=== PATIENT | male | born 1945 | race African-American/Black ===

== ENCOUNTER 2019-02-03 07:59 | Emergency (ER) | payer OTHER ==
[~2019-02-03] VITALS: Ht 132.1 cm; Wt 62.6 kg
[2019-02-03] MEDS ORDERED: ZYLOPRIM300 MG PO (08:09)
[2019-02-03] MEDS ORDERED: AMLODIPINE BESY10 MG PO (08:22)
[2019-02-03] MEDS ORDERED: LIPITOR80 MG PO (08:22)
[2019-02-03] MEDS ORDERED: PLAVIX 75 MG TA75 M1 PO (08:23)
[2019-02-03] MEDS ORDERED: VITAMIN D1000 UNI1 PO (08:23)
[2019-02-03] MEDS ORDERED: COLACE100 MG PO (08:26)
[2019-02-03] MEDS ORDERED: ELIQUIS5 MG PO (08:26)
[2019-02-03] MEDS ORDERED: FOLIC ACID1 MG PO (08:26)
[2019-02-03] MEDS ORDERED: IMDUR 30 MG TAB30 M1 PO (08:27)
[2019-02-03] MEDS ORDERED: NORCO 5-325 TA1 EACH PO (08:27)
[2019-02-03] MEDS ORDERED: LOPRESSOR50 PO (08:28)
[2019-02-03] MEDS ORDERED: LIDOCAINE PAIN1 EACH TOP (08:28)
[2019-02-03] MEDS ORDERED: [UNRECOGNIZED DRUG - OTHER] TOP (08:28)
[2019-02-03] MEDS ORDERED: OMEPRAZOLE20 M1 PO (08:29)
[2019-02-03] MEDS ORDERED: PROAIR HFA8.5 GM INH (08:30)
[2019-02-03] MEDS ORDERED: SENNA8.6 MG PO (08:30)
[2019-02-03] MEDS ORDERED: STIOLTO RESPIMAT4 GM INH (08:30)
[2019-02-03] MEDS ORDERED: SYMBICORT160 MCG/4. INH (08:31)
[2019-02-03] MEDS ORDERED: VITAMIN B-1100 M1 PO (08:31)
[2019-02-03] MEDS ORDERED: TRAMADOL 50 MG50 MG PO (08:31)
[2019-02-03] MEDS ORDERED: VENLAFAXINE HC225 MG PO (08:31)
[2019-02-03] MEDS ORDERED: NEURONTIN 300300 M1 PO (08:32)
[2019-02-03] MEDS ORDERED: ONDANSETRON HCL4 M2 PO (08:32)
[2019-02-03] MEDS ORDERED: MELATONIN3 MG PO (08:33)
[2019-02-03] MEDS ORDERED: PERCOCET PO (08:33)
[2019-02-03] MEDS ORDERED: PRINIVIL10 MG PO (08:33)
[2019-02-03 09:00] LABS: BASOPHILS 0.8 % (0.0-2.0); EOSINOPHILS 0.1 % (0.0-3.0); HEMOGLOBIN 12.2 gm/dL (14.0-18.0); LYMPHOCYTES 15.4 % (24.0-44.0); MCH 31.3 pg (26.0-34.0); MCV 95.1 fL (80.0-100.0); MONOCYTES 10.5 % (1.0-8.0); PLATELET COUNT 315 thou/uL (150-400); POLYS 73.2 % (36.0-66.0); RBC 3.89 mil/uL (4.50-6.00); RDW 17.1 % (10.5-14.5); WBC 9.6 thou/uL (4.0-11.0)
[2019-02-03 09:09] LABS: ANION GAP 7 mmol/L (7-16); BUN 16 mg/dL (7-18); CALCIUM 10.3 mg/dL (8.5-10.1); CHLORIDE 101 mmol/L (98-107); CO2 30 mmol/L (21-32); CREATININE 0.9 mg/dL (0.7-1.3); GLUCOSE 124 mg/dL (74-106); POTASSIUM 4.1 mmol/L (3.5-5.1)
[2019-02-03 09:15] LABS: SODIUM 138 mmol/L (136-145)
[2019-02-03 09:17] LABS: TROPONIN-I <0.06 ng/mL (<0.06)
--- NOTE | 2019-02-03 09:21 | EKG ---
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1945 Requested By: Meir Kelly Order Number: [id number] MD: Misbah Ang Measurements Intervals [place] Rate: 131 P: WA: QRS: 10 QRSD: 97 T: 69 QT: 317 QTc: 468 Interpretive Statements Atrial fibrillation Abnormal R-wave progression, early transition Nonspecific ST and T wave abnormality No previous ECG available for comparison Electronically Signed On 02-03-2019 9:21:06 CDT by Misbah Agn [email or web address] ��������������������������������������������� <ELECTRONICALLY SIGNED> ���������������������������������������� By: Misbah Ang MD, [facility] ��������������������������������������������� 02/03/19 0921 0831 0831 Misbah Ang MD, FACC /EPI
[2019-02-03 12:00] VITALS: BP 168/75
== END 2019-02-03 14:00 | disposition home or self-care (01) ==
LOC: ER 07:59
PROVIDERS: Emergency Medicine
DX: L76.22 Postprocedural hemorrhage of skin and subcutaneous tissue following other procedure (principal); I48.0 Paroxysmal atrial fibrillation; G89.18 Other acute postprocedural pain; Y83.9 Surgical procedure, unspecified as the cause of abnormal reaction of the patient, or of later complication, without mention of misadventure at the time of the procedure

== ENCOUNTER 2019-02-13 09:36 | Inpatient (IN) | payer OTHER ==
[~2019-02-13] VITALS: Ht 152.4 cm; Wt 62.7 kg
--- NOTE | ~2019-02-13 | O ---
[facility] [place] [address] OPERATIVE REPORT Name: ROBERT GARRETT Room #: 209-P ADM IN M.R.#: [id number] Admission: 02/13/19 ������������������ Attend Phys: Abby Murray MD Discharge: ������������������ Date of : 47 Report #: [id number] THIS REPORT FOR: //name// CC: Lu Pryor Abby Murray DATE OF SERVICE: 02/16/2019 DIAGNOSES: Right long finger wound infection and flexor tenosynovitis. PROCEDURE PERFORMED: Right long finger debridement of skin and subcutaneous tissue, deep right long finger and flexor tendon sheath. SURGEON: Mariana Lilly MD. ANESTHESIA: Local MAC anesthesia. ESTIMATED BLOOD LOSS: 10 mL. TOURNIQUET TIME: None. COMPLICATIONS: None. CONDITION: Stable. DISPOSITION: Recovery room. SPECIMEN: Sent to microbiology. INDICATIONS: The patient is a 73-year-old male with progressive increased swelling and pain in the right long finger at the amputation site as well as in the palm today. He had noted increased swelling and purulent drainage out of the wound. The procedure as well as postoperative course were discussed with both the patient and his sister. I did spoke with his sister, Emily, over the phone. DESCRIPTION OF PROCEDURE: The risks, benefits, alternatives and complications were discussed including, but not limited to wound healing problems, inability to resolve the infection, necessitating more surgery, possible amputation and stiffness. Informed consent was obtained. The correct extremity was identified and labeled by myself after verbal confirmation of the patient and visual confirmation and signed informed consent. DESCRIPTION OF PROCEDURE: The patient was brought back to the operating room and placed on the operative room table in supine position. A prolonged and difficult attempt was made to place another IV. The original IV was placed in [address] [address] OPERATIVE REPORT Name: TAMIROBERT JR Room #: 209-P [facility] IN .R.#: [id number] Admission: 02/13/19 ������������������ Attend Phys: Abby Murray MD Discharge: ������������������ Date of : 47 Report #: [id number] the operative extremity in the junction of the middle and distal forearm volarly. After multiple attempts on both upper extremities and in both external jugulars, no IV was able to be placed. The patient has had bilateral above-knee amputations and there was no IV access there either and so I elected to perform the case without a tourniquet. The right upper extremity was sterilely prepped and draped in usual fashion. Final timeout was taken to verify correct patient, operative procedure, operative site, all concurred. Next, approximately 5 mL of a mixture of 0.25% Marcaine with 1% lidocaine was injected into the subcutaneous tissue proximal to the area of swelling in the palm. After adequate anesthesia was obtained, distal stitches were removed. Prior to manipulating the long finger, the ring finger was covered with an OpSite as it did not appear to have any signs of infection. There was immediate purulent fluid that was obtained out of the distal wound. An incision measuring 3 cm was made just proximal to the A1 osei and purulent fluid was immediately expressed. The FDP and FDS tendons immediately extruded out of the wound. They were cut off proximally because there was no distal attachment to the amputation at the PIP joint. The A1 osei was incised. Fluid flowed well throughout the tendon sheath with Asepto. Two liters of antibiotic saline was then irrigated through the flexor tendon sheath in both antegrade and retrograde. Regular rongeur was used previously to debride the area. After thorough irrigation, the wound was again evaluated. There were no areas of purulence. No other pockets of purulent fluid. The distal stump wound was closed with 4-0 nylon suture with a Francine drain and sterile Xeroform dressing was applied. The proximal wound was not dressed in order to facilitate drainage. The wound was dressed with Kerlix. There was minimal bleeding. Radial pulse was 1+. All sponge and needle counts were correct. The patient had unchanged color to the tips of his fingers due to his dark skin, capillary refill was difficult to determine, but he did appear to have good capillary refill. All sponge and needle counts were correct. The patient was transferred to the postoperative recovery room in stable condition. ��������������������������������������������� ���������������������������������������� By: ��������������������������������������������� 1148 1219 Mariana Lilly MD /lisa
--- NOTE | ~2019-02-13 | HC ---
[facility] [place] [address] CONSULTATION Name: ROBERT GARRETT Room #: 209-P ADM IN M.R.#: [id number] Admission: 02/13/19 ������������������ Attend Phys: Abby Murray MD Discharge: ������������������ Date of : 47 Report #: [id number] THIS REPORT FOR: //name// CC: Lu Pryor Abby Murray DATE OF SERVICE: 02/14/2019 REASON FOR CONSULTATION: Right fingers. HISTORY OF PRESENT ILLNESS: The patient is a 73-year-old male who is an extremely poor historian. He does not know when he had surgery on his fingers. He reports he has had worsening pain for the last 2 days in his fingers. He gives a history of intermittent feelings of poor blood flow to the fingers, which is painful. He has had multiple surgeries on his fingers. The patient's medical record states he had the long and ring finger digits amputated 2 weeks ago at the [place] for diagnosis of gangrene and apparently a few days ago, he had some bleeding and was seen in the Emergency Department. He reports pain at the stumps as well as in the volar aspect of the palm with increased swelling. PAST MEDICAL HISTORY: Was obtained from the chart including atrial fibrillation with rapid ventricular response, COPD, peripheral vascular disease. ALLERGIES: No known drug allergies. MEDICATIONS: Reported home medications include allopurinol, amlodipine, atorvastatin, cholecalciferol, clopidogrel, docusate, apixaban, folic acid, hydrocodone, isosorbide, lidocaine, metoprolol, omeprazole, albuterol, sennosides, tiotropium, budesonide, thiamine, tramadol, venlafaxine, ondansetron, gabapentin, lisinopril, melatonin and oxycodone. SOCIAL HISTORY: Significant for alcohol use and smoking. 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 REVIEW OF SYSTEMS: MUSCULOSKELETAL: See HPI. NEUROLOGIC: Denies numbness or tingling. LABORATORY DATA: Done on 02/14/2019 show white blood cell count 17.9, hemoglobin 9.3, hematocrit 29.0, platelet count 335. Chemistry is grossly normal. PHYSICAL EXAMINATION: GENERAL: The patient is alert. He converses well, although he does not [address] [address] CONSULTATION Name: ROBERT GARRETT Room #: 209-P [facility] IN M.R.#: [id number] Admission: 02/13/19 ������������������ Attend Phys: Abby Murray MD Discharge: ������������������ Date of : 47 Report #: [id number] cooperate with questions very well and it is difficult to obtain a history. He is otherwise well developed, well nourished, but thin male. VITAL SIGNS: Most recent vital signs show temperature of 37.4, heart rate 101, respiratory rate 20, blood pressure 111/53 and pulse oximetry is 92% on 3 liters of nasal cannula. EXTREMITIES: Examination of his right upper extremity shows diffuse edema in the palm and long and ring fingers with no erythema. The wounds are healing nicely. There is diffuse tenderness volarly in the palm as well as along the fingers. He has a shortened small finger from a prior surgical procedure. There is no dorsal tenderness at the long and ring fingers. There is no purulent drainage. His gross motor and sensation is grossly intact and he has brisk capillary refill. There is no erythema or warmth. RADIOGRAPHS: AP, lateral and oblique of the right hand were reviewed and interpreted by myself as well as the radiology report showed amputation through the PIP joint of the right long and ring fingers and through the distal aspect of the P3 on the small finger. There is no evidence of osteomyelitis. IMPRESSION AND PLAN: Approximately 2 weeks status post right long and ring finger amputations with apparent increased swelling and pain without erythema. At this point, because of my difficulty achieving a good history as well as tenderness, I think it would be appropriate to obtain an MRI to evaluate for deep infection. Vascular surgery consult would be appropriate as well due to the patient's apparent symptoms of claudication. I will continue to follow this patient. Thank you very much for allowing me to participate in the care of this patient. ��������������������������������������������� ���������������������������������������� By: ��������������������������������������������� 0753 1311 Mariana Lilly MD /lisa
[~2019-02-13 09:36] MED LIST: AMLODIPINE BESY10 MG PO; COLACE100 MG PO; ELIQUIS5 MG PO; FOLIC ACID1 MG PO; IMDUR 30 MG TAB30 M1 PO; LIPITOR80 MG PO; LOPRESSOR50 PO; Lidocaine TOP; MELATONIN3 MG PO; NEURONTIN 300300 M1 PO; NORCO 5-325 TA1 EACH PO; OMEPRAZOLE20 M1 PO; ONDANSETRON HCL4 M2 PO; PERCOCET PO; PLAVIX 75 MG TA75 M1 PO; PRINIVIL10 MG PO; PROAIR HFA8.5 GM INH; SENNA S TABLET1 EACH PO; STIOLTO RESPIMAT4 GM INH; SYMBICORT160 MCG/4. INH; TRAMADOL 50 MG50 MG PO; VENLAFAXINE HC225 MG PO; VITAMIN B-1100 M1 PO; VITAMIN D1000 UNI1 PO; ZYLOPRIM300 MG PO; [UNRECOGNIZED DRUG - OTHER] TOP
[2019-02-13 09:38] VITALS: BP 129/76
[2019-02-13 10:14] LABS: ABSOLUTE NEUTROPHILS 17.8 thou/uL (1.4-8.2); BASOPHILS 0.2 % (0.0-2.0); HEMOGLOBIN 11.2 gm/dL (14.0-18.0); LYMPHOCYTES 1.8 % (24.0-44.0); MCH 30.4 pg (26.0-34.0); MCHC 32.9 g/dL (28.0-37.0); MCV 92.5 fL (80.0-100.0); MONOCYTES 4.4 % (1.0-8.0); PLATELET COUNT 357 thou/uL (150-400); POLYS 93.6 % (36.0-66.0); RBC 3.67 mil/uL (4.50-6.00); RDW 17.3 % (10.5-14.5)
[2019-02-13 10:25] LABS: ANION GAP 11 mmol/L (7-16); BUN 17 mg/dL (7-18); CHLORIDE 95 mmol/L (98-107); CO2 27 mmol/L (21-32); GLUCOSE 129 mg/dL (74-106); POTASSIUM 3.7 mmol/L (3.5-5.1); SODIUM 133 mmol/L (136-145)
[2019-02-13 10:35] LABS: ALBUMIN 3.1 g/dL (3.4-5.0); SGOT 34 U/L (15-37); SGPT 37 U/L (30-65); TOTAL BILIRUBIN 0.3 mg/dL (<0.1-1.0); TOTAL PROTEIN 8.9 g/dL (6.4-8.2); TROPONIN-I <0.06 ng/mL (<0.06)
[2019-02-13 11:39] VITALS: BP 168/72
[2019-02-13 11:46] VITALS: BP 131/69
--- NOTE | 2019-02-13 13:09 | NUR ---
TO UNIT BY CART FROM E.D. AT 1200. ASSUMED CARE. TADEO ALBERTO, ADMISSION EDUCATION. LAB HERE NOW TO DRAW SEPSIS LABS. WILL CONTINUE TO MONITOR. FALL PRECAUTIONS IN PLACE.
--- NOTE | 2019-02-13 14:04 | 2DMMODE ---
[place] [address] [facility] [place] [address] 2 D/M-MODE ECHOCARDIOGRAM Name: ROBERT GARRETT Room #: 209-P ADM IN M.R.#: [id number] ������������� Admission: 02/13/19 ������������� Attend Phys: Abby Murray MD Discharge: ��� ������������� ��� Date of : 47 Date of Service: 02/13/19 1403 �� Report #: [id number] �������� ��������������������������������������������[id number] THIS REPORT FOR: //name// APPROVED REPORT Study performed: 02/13/2019 13:19:24 EXAM: Comprehensive 2D, Doppler, and color-flow Echocardiogram Patient Location: Bedside Room #: 209 Status: routine BSA: 1.57 HR: 80 bpm BP: 168/72 mmHg Rhythm: NSR Other Information Study Quality: Fair Technically limited study due to lung disease/artifact, no patient participation. Indications Chest pain, Afib w RVR. Hx: HTN, HLP, COPD, bilateral [place], lung cancer. 2D Dimensions RVDd: 29.85 mm IVSd: 9.78 (7-11mm) LVOT Diam: 20.13 (18-24mm) LVDd: 40.70 mm PWd: 10.03 (7-11mm) LVDs: 29.71 (25-40mm) Aortic Root: 34.33 mm Volumes Left Atrial Volume (Systole) Single Plane 4CH: 21.50 mL Single Plane 2CH: 25.09 mL LA ESV Index: 17.00 mL/m2 Aortic Valve AoV Peak Pepito.: 1.35 m/s AO Peak Gr.: 7.25 mmHg LVOT Max P.00 mmHg LVOT Max V: 1.23 m/s TU Vmax: 2.89 cm2 Mitral Valve [facility] [address] [place] [address] 2 D/M-MODE ECHOCARDIOGRAM Name: ROBERT GARRETT Room #: 209-P [facility] IN ..#: [id number] ������������� Admission: 02/13/19 ������������� Attend Phys: Abby Murray MD Discharge: ��� ������������� ��� Date of : 47 Date of Service: 02/13/19 1403 �� Report #: [id number] �������� ��������������������������������������������[id number] E/A Ratio: 0.6 MV Decel. Time: 240.95 ms MV E Max Pepito.: 0.48 m/s MV A Pepito.: 0.75 m/s MV PHT: 69.88 ms IVRT: 78.43 ms Left Ventricle The left ventricle is normal size. There is normal left ventricular wall thickness. Left ventricular systolic function is normal. LVEF is 55%. Mild diastolic dysfunction is present (impaired relaxation pattern). Right Ventricle The right ventricle is normal size. The right ventricular systolic function is normal. Atria The left atrium size is normal. The right atrium size is normal. Aortic Valve The aortic valve is not well visualized. Aortic valve is mildly calcified. Mild to moderate aortic regurgitation. There is no aortic valvular stenosis. Mitral Valve The mitral valve is normal in structure. There is no mitral valve regurgitation noted. No evidence of mitral valve stenosis. Tricuspid Valve The tricuspid valve is normal in structure. There is no tricuspid valve regurgitation noted. Unable to assess PA pressure. Pulmonic Valve Pulmonic valve is not well visualized. Great Vessels The aortic root is normal in size. Ascending aorta is not well visualized. IVC is not well visualized. Pericardium There is no pericardial effusion. <Conclusion> The left ventricle is normal size. [facility] [address] [place] [address] 2 D/M-MODE ECHOCARDIOGRAM Name: ROBERT GARRETT Room #: 209-P [facility] IN M.R.#: [id number] ������������� Admission: 02/13/19 ������������� Attend Phys: Abby Murray MD Discharge: ��� ������������� ��� Date of : 47 Date of Service: 02/13/191402 �� Report #: [id number] �������� ��������������������������������������������[id number] There is normal left ventricular wall thickness. Left ventricular systolic function is normal. Mild diastolic dysfunction is present (impaired relaxation pattern). The right ventricle is normal size. The left atrium size is normal. The right atrium size is normal. Mild to moderate aortic regurgitation. There is no mitral valve regurgitation noted. There is no tricuspid valve regurgitation noted. ��������������������������������������������� <ELECTRONICALLY SIGNED> ���������������������������������������� By: Bigg Lawrence MD ��������������������������������������������� 02/13/19 1403 140 1403 Bigg Lawrence MD /KRISTOPHER
--- NOTE | 2019-02-13 15:45 | NUR ---
TO UNIT BY CART, ACCOMPANIED BY EMT'S AND YOUNGER BROTHER GUIDO ROBIN. REPORT FROM [facility]. WILL CONTINUE TO FOLLOW.
[2019-02-13] MEDS ORDERED: LIDOCAINE TOP (15:47)
--- NOTE | 2019-02-13 15:56 | EKG ---
[address] [address] ELECTROCARDIOGRAM REPORT Name: ROBERT GARRETT Room #: 209-P ADM IN M.R.#: [id number] ������������������ Admission: 02/13/19 ������������������ Attend Phys: Abby Murray MD Discharge: ������������������ Date of : 47 Report #: [id number] ����������������������������������������������������������������� [id number] THIS REPORT FOR: //name// [facility] ED Test Date: 2019-02-13 Test Time: 09:41:07 Pat Name: ROBERT GARRETT Department: Room: 209 Gender: M [employer]: TRACY : 1945 Requested By: David Escudero Order Number: [id number] MD: Bigg Lawrence Measurements Intervals [place] Rate: 141 P: MD: QRS: 22 QRSD: 76 T: 147 QT: 324 QTc: 496 Interpretive Statements Atrial fibrillation Abnormal R-wave progression, early transition Repolarization abnormality, prob rate related Borderline prolonged QT interval Compared to ECG 02/03/2019 08:31:33 Early repolarization now present ST (T wave) deviation no longer present Electronically Signed On 02-13-2019 15:56:35 CDT by Bigg Lawrence [email or web address] ��������������������������������������������� <ELECTRONICALLY SIGNED> ���������������������������������������� By: Bigg Lawrence MD ��������������������������������������������� 02/13/19 1556 0941 0941 Bigg Lawrence MD /[facility]
--- NOTE | 2019-02-13 16:21 | NUR ---
Case opened to follow for dc planning. Pt is newly admitted via the ER from [facility]. 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 They are holding his bed and report his sister Yenifer to be his primary contact. The pt is a bilat amputee and uses an elect w/c at the facility. He is a smoker and regularly refuses to use his oxygen. He utilizes the [facility] for f/u care and had digit amputation of his rt hand 3 and 4th fingers 2 wks ago. The pt admitted with chest pain, afib, rt hand cellulitis and copd. The attending has spoken with his sister and the pt is a DNR. Dc plan is to return to termite treater care at [facility]. Should the pt be dc ready over the weekend, contact [facility] to make arrangements [phone]. Pt does not have his elec w/c here and will need stretcher or ambulance transport to return. [facility] is checking his record for any AD or DPOA for health care on file.
[2019-02-13 21:30] VITALS: BP 153/78
[2019-02-14 04:30] VITALS: BP 111/53
--- NOTE | 2019-02-14 05:39 | NUR ---
ASSUMED PT CARE AT 1900 WITH NO SIGN OF DISTRESS NOTED. PT IS ALERT BUT IS CONFUSED. PT IS SITTING IN BED. PT IS COMFORTABLE WITH OXYGEN. PT CONVERTED BACK INTO AFIB AFTER CARDIZEM HAD BEEN DISCONTINUED. DR FLORENCE NOTIFIED AND HE ORDERED CARDIZEM RESTARTED. PT'S RATE IS BETTER CONTROLLED. SCHEDULED MEDS ADMINISTERED TO PT. DENIES ANY FURTHER NEEDS AT THIS TIME. PAIN MEDS ADMINISTERED NEEDED, CONTINUE NURSING POC.
[2019-02-14 05:56] LABS: HEMOGLOBIN 9.3 gm/dL (14.0-18.0); MCH 29.9 pg (26.0-34.0); MCHC 32.1 g/dL (28.0-37.0); MCV 93.2 fL (80.0-100.0); RBC 3.11 mil/uL (4.50-6.00); RDW 17.6 % (10.5-14.5); WBC 17.9 thou/uL (4.0-11.0)
[2019-02-14 06:04] LABS: ANION GAP 11 mmol/L (7-16); BUN 15 mg/dL (7-18); CALCIUM 9.7 mg/dL (8.5-10.1); CHLORIDE 100 mmol/L (98-107); CO2 26 mmol/L (21-32); CREATININE 0.9 mg/dL (0.7-1.3); GLUCOSE 104 mg/dL (74-106); POTASSIUM 3.5 mmol/L (3.5-5.1); SODIUM 137 mmol/L (136-145); TROPONIN-I <0.06 ng/mL (<0.06)
--- NOTE | 2019-02-14 10:33 | NUR ---
Nutrition: pt admitted with CP, afib, RVR, COPD. Consulted due to bilateral amputee. Chart reviewed. Pt reports he has a good appetite and weights flucutate within a range. Noted A1C 6.0, BG 93. On heart healthy diet. Pt from [place] and [facility] drinks ensure daily. WIll offer Glucerna instead. Low risk.
--- NOTE | 2019-02-14 11:13 | HC ---
[facility] [place] [address] CONSULTATION Name: DAMIAN GARRETT Room #: 209-P ADM IN M.R.#: [id number] Admission: 02/13/19 ������������������ Attend Phys: Abby Murray MD Discharge: ������������������ Date of : 47 Report #: [id number] THIS REPORT FOR: //name// CC: Lu Pryor Abby Murray DATE OF SERVICE: 02/14/2019 ATTENDING PHYSICIAN: Dr. Murray. REASON FOR EVALUATION: Right hand inflammation. Postop third and fourth digit partial amputations felt to be possibly complicated by bacterial infection. HISTORY OF PRESENT ILLNESS: Chart reviewed, patient examined. This is a 73-year-old gentleman who has had significant medical history and it is quite complex, has known vasculopathy, previous bilateral AKA and felt to have gangrenous changes. He was admitted through the Emergency Room with complaints of chest pain, does have a history of the same and was evaluated and stabilized, was found to have marked inflammation noted with his right hand in the site of previous above noted surgery roughly three weeks ago. It is not clear if he has had fever or chills. He is not an exceptional historian. He does repeatedly complain about the pain. He notes he has had a poor appetite associated with the pain. He states he has lost some weight, although this is not clear either. He denies any current dyspnea. He was empirically started on antimicrobials with piperacillin and tazobactam as well as vancomycin. Orthopedic Surgery has been consulted. He did undergo imaging, plain film of the hand, which confirmed the amputation sites and the soft tissue swelling. No drainable focus of fluid. ALLERGIES: None known. CURRENT MEDICATIONS: Include metoprolol, isosorbide mononitrate, docusate, clopidogrel, atorvastatin, amlodipine, allopurinol, apixaban, Zosyn, vancomycin, gabapentin, narcotic analgesics as needed. PAST MEDICAL HISTORY: Includes hyperlipidemia, history of hypertension, COPD, reflux, gout, lung cancer, bilateral vcgvt-ver-igvl amputations, repeated chest pain, suspect angina and peripheral vascular disease. SOCIAL HISTORY: History of ethanol and tobacco excess. FAMILY HISTORY: Noncontributory. REVIEW OF SYSTEMS: Otherwise unremarkable with the exception of the above in the history of present illness. PHYSICAL EXAMINATION: [address] [address] CONSULTATION Name: DAMIAN GARRETT Room #: 209-P [facility] IN M.R.#: [id number] Admission: 02/13/19 ������������������ Attend Phys: Abby Murray MD Discharge: ������������������ Date of : 47 Report #: [id number] GENERAL: He appears chronically ill, appears undernourished. He is pleasant, cooperative, in moderate distress. He is sitting up in bed. VITAL SIGNS: Temperature 99.4, pulse 101, respirations 20, blood pressure 111/53. SKIN: Warm and dry. HEENT: Normocephalic. Extraocular muscles intact. NECK: Supple. LUNGS: Diminished breath sounds. HEART: Tachycardic, appears regular. There is a soft systolic murmur. ABDOMEN: Soft, nontender and nondistended. EXTREMITIES: He is with bilateral lrpzx-xdg-vbtm amputations. In his right hand, he has got partial amputations of the third and fourth digits. Sutures remain in place. There is moderate to marked inflammatory changes. It is quite tender. It is difficult to ascertain any fluctuance. GENITOURINARY: Deferred. RECTAL: Deferred. LABORATORY DATA: Initial CBC: White count 19.0, H and H 11.2 and 34.0, platelets of 357. Electrolytes: Sodium 133, potassium 3.7, chloride 95, bicarbonate is 27, anion gap of 11, BUN and creatinine 17 and 1.0. Albumin of 3.1. Total protein of 8.9. Chest x-ray, no obvious acute process, although there are some chronic changes and x-rays as noted above. Lactic acid 1.5 and glucose of 93. Hemoglobin A1c of 6.0. ASSESSMENT: Postop right third and fourth digit partial amputations of the right hand concerning for possibility of postoperative infection in this setting. I agree with empiric therapy. It is not clear if he has got any additional drainable focus at this point. We will see how he responds clinically. Certainly a component of vasculopathy is likely in play as well. Continue to try to elevate as allowed. We will monitor expectantly and await Orthopedic Surgery evaluation. ��������������������������������������������� <ELECTRONICALLY SIGNED> ���������������������������������������� By: Damian Lopez MD ��������������������������������������������� 02/14/19 1113 0613 0700 Damian Lopez MD /nt
[2019-02-14 15:45] VITALS: BP 130/103
--- NOTE | 2019-02-14 18:30 | NUR ---
ORIENTED TO SELF. GENERALLY COOPERATIVE. EPISTAXIS, WHICH HE STATES HAPPENS MONTHLY. ON TWO BLOOD THINNERS R/T AFIB AND PVD; DR. GARCIA PUTS THEM ON HOLD. DR. MUNOZ, ENT, CONSULTED BUT WHEN HERE PATIENT WAS IN MRI. MRI UNSUCCESSFUL R/T EPISTAXIS AND INABILITY OF PATIENT TO HOLD STILL. ALTERNATELY INCONTINENT OF URINE AND USING THE URINAL APPROPRIATELY. PAIN MEDS AND ANTIBIOTICS ORDERED. FREQUENT CHECKS; WILL CONTINUE TO MONITOR.
--- NOTE | 2019-02-14 18:34 | NUR ---
AAO. SR PER TELE. PT AND OT SEE AND RECOMMEND KEEPING THE GOMES FOR NOW. SAT UP IN THE BEDSIDE CHAIR FOR SEVERAL HOURS. PO INTAKE IS BRISK. DIURESING PER GOMES. FREQUENT CHECKS; WILL CONTINUE TO MONITOR.
[2019-02-14 20:09] VITALS: BP 117/45
[2019-02-15 05:03] VITALS: BP 117/57
[2019-02-15 05:05] LABS: HEMATOCRIT 25.7 % (42.0-52.0); HEMOGLOBIN 8.4 gm/dL (14.0-18.0); MCH 30.6 pg (26.0-34.0); MCHC 32.6 g/dL (28.0-37.0); MCV 93.8 fL (80.0-100.0); RBC 2.74 mil/uL (4.50-6.00); RDW 17.8 % (10.5-14.5); WBC 16.2 thou/uL (4.0-11.0)
--- NOTE | 2019-02-15 05:05 | NUR ---
ASSUMED PT CARE AT 1900 [place] NO SIGN OF DISTRESS NOTED. PT IS ALERT BUT CONFUSED, PAIN MED ADMINISTERED TO PT AT THE BEGINNING OF THE SHIFT. SCHEDULED MEDS ADMINISTERED TO PT. NO SIGN OF DISTRESS NOTED. CONITNUE TO MONITOR. DENIES ANY FURTHER NEEDS AT THIS TIME.
[2019-02-15 07:52] VITALS: BP 122/60
--- NOTE | 2019-02-15 08:17 | EKG ---
[address] [employer] [place] [place] [address] ELECTROCARDIOGRAM REPORT Name: ROBERT GARRETT Room #: 209-P ADM IN M.R.#: [id number] ������������������ Admission: 02/13/19 ������������������ Attend Phys: Abby Murray MD Discharge: ������������������ Date of : 47 Report #: [id number] ����������������������������������������������������������������� [id number] THIS REPORT FOR: //name// [facility] Test Date: 2019-02-14 Test Time: 07:47:58 Pat Name: ROBERT GARRETT Department: Room: 209 P Gender: M Floor Supervisor: SHAR : 1945 Requested By: Sara Ponce Order Number: [id number] MD: Bigg Lawrence Measurements Intervals [place] Rate: 94 P: 0 IL: 52 QRS: -33 QRSD: 99 T: 60 QT: 369 QTc: 462 Interpretive Statements Sinus rhythm Short [place] interval Left axis deviation Borderline low voltage, extremity leads Compared to ECG 02/13/2019 09:41:07 Atrial fibrillation no longer present Electronically Signed On 02-15-2019 8:17:25 CDT by Bigg Lawrence [email or web address] ��������������������������������������������� <ELECTRONICALLY SIGNED> ���������������������������������������� By: Bigg Lawrence MD ��������������������������������������������� 02/15/19 0817 0747 6 Bigg Lawrence MD /RONALD
[2019-02-15 12:09] VITALS: BP 104/47
--- NOTE | 2019-02-15 15:22 | NUR ---
Received awake on bed. Due medications given as prescribed. Able to swallow medications w/o difficulty. On O2 at 3lpm via nasal cannula. Assisted in ADLs, eating and drinking. 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 A+O 1-2, with history of dementia, oriented to person and place. With IV at R FA and L AC, NS at 80cc/hr infusing well at L AC. Occasional incontinence, sometimes uses urinal. Laboratory called up, pt was due for drug screen on admission but was not processed, specimen to be sent again according to staff. A/W MRI today, pt was for MRI yesterday but pt became anxious. Pt with Carlos episodes this AM while Dr. Lawrence was doing his rounds, pt assessed by Doctor and orders put in. Dr. Blandon's associate(Sanam Rabago) called this AM, asked about pt's status, to order Arterial Duplex for Saturday morning- order put in. Pt. seen by Dr. Murray, to d/c Morphine, pt slight lethargic and just give PO pain meds, to observe for further epistaxis- none the whole shift. D/C NS as ordered by Dr. Murray, for CBC tomorrow, pt placed on humidified o2.
[2019-02-15 16:00] VITALS: BP 97/48
[2019-02-15 19:06] VITALS: BP 101/44
[2019-02-16] VITALS (7 sets, daily range): BP systolic 97–110; BP diastolic 46–78
[2019-02-16 03:20] LABS: HEMATOCRIT 22.2 % (42.0-52.0); HEMOGLOBIN 7.2 gm/dL (14.0-18.0); MCH 30.1 pg (26.0-34.0); MCHC 32.3 g/dL (28.0-37.0); MCV 93.2 fL (80.0-100.0); RBC 2.38 mil/uL (4.50-6.00); RDW 17.9 % (10.5-14.5); WBC 17.2 thou/uL (4.0-11.0)
--- NOTE | 2019-02-16 04:17 | NUR ---
CLIENT REMAINS IN THE [address] [place] [address] IN PATIENT UNIT. CARE ASSUMED 02/15/19 @ 2300. CLIENT IS A/O X 2 W/PERIODS OF CONFUSION. CLIENT IS [place], HAS 1+-2+ EDEMA IN THE RIGHT HAND. RECEIVING 3L/NC 02. CLIENT IS ON A HEART HEALTHY DIET W/GLUCERNA SUPPLEMENTS. LAST BM 02/12/19. CLIENT IS ALSO A AKA BILATERALLY. 3RD AND 4TH DIGIT TO RIGHT HAND HAVE BEEN AMPUTATED. LEFT AC PIV AND RIGHT FA PIV SALINE LOCKED. CLIENT IS SCHEDULED FOR US ATERIAL TO UPPER RIGHT HAND. PLEASE SEE [employer] FOR ADDITIONAL QUESTIONS OR CONCERNS.
--- NOTE | 2019-02-16 18:19 | NUR ---
NOTICED PATIENT BECOME DEMETRIA AT 1758, IMMEDIATELY CHECKED ON PATIENT WHO WAS APENIC. PULSE CHECK AT THIS TIME- NO PULSE FOUND. VERIFED BY SECOND NURSE. PT BECAME ASYSTOLE ON THE MONITOR. DR. GONSALEZ IN ROOM AT THIS TIME AND PRONUCNED PATIENT AT 1800. PT WAS A NO CODE STATUS THEREFORE RESUSCITATION WAS NOT INITIATED.
--- NOTE | 2019-02-16 19:26 | NUR ---
ALL PHYSICIANS NOTIFED ABOUT PATIENT EXPIRATION. SISTER FRANSICO NOTIFED BY DR. GONSALEZ AND BY THIS NURSE WELL. ALL QUESTIONS ANSWERED. SISTER REQUESTED THAT BELONGINGS BE SENT WITH HOME. [facility] NOTIFIED - PT NOT ELIGIBLE CASE.
--- NOTE | 2019-02-19 13:21 | HC ---
[facility] [address] [place] [address] CONSULTATION Name: ROBERT GARRETT Room #: 209-P [facility] IN M.R.#: [id number] Admission: 02/13/19 ������������������ Attend Phys: Abby Murray MD Discharge: 02/16/19 ������������������ Date of : 47 Report #: [id number] THIS REPORT FOR: //name// CC: Lu Pryor Abby Murray DATE OF SERVICE: 02/15/2019 REASON FOR CONSULTATION: Epistaxis. HISTORY OF PRESENT ILLNESS: The patient is a 73-year-old male who has had a history of epistaxis. He says this happens very occasionally. At home, he has been on home oxygen therapy, although he is noncompliant, especially with his smoking and is anticoagulated for peripheral vascular disease. He had a little bit of a nosebleed yesterday that stopped spontaneously. He says he has never tried anything in his nose to try to keep it from bleeding. He has recently been admitted for cardiac arrhythmia and shortness of breath. PAST MEDICAL HISTORY: His past medical history is significant for atrial fibrillation, cellulitis, chronic chest pain, COPD, hypoxemia, leukocytosis and paroxysmal atrial fibrillation with rapid ventricular response. PAST SURGICAL HISTORY: He is an [id number] amputee bilaterally. He has had recent surgical amputation of his right middle finger distal tip. ALLERGIES: No known drug allergies. OTHER MEDICAL HISTORY: As listed in the chart. Also significant for emphysema, reflux, depression, COPD, gout, hepatitis and lung cancer. REVIEW OF SYSTEMS: Essentially negative at this time. PHYSICAL EXAMINATION: GENERAL: He is a well-developed male, in no apparent distress. He is resting comfortably in bed. His head is off to the right. He is sitting at about 70 degrees and is sleeping in this position. HEENT: Head is normocephalic. Pupils are equal, round and reactive to light. Nasal, he has a severe septal deviation to the right. There is some crusting present in the anterior nares. He has nasal cannula oxygen in place. No evidence of prominent vascularity and no evidence of ulceration. Right nasal cavity is for the most part completely obstructed by his septal deviation. Oral cavity, no granulation or ulcerations seen. NECK: No palpable adenopathy. IMPRESSION: Oxygen therapy with drying in the setting of anticoagulation and severe septal deviation. [address] [address] CONSULTATION Name: ROBERT GARRETT Room #: 209-P [facility] IN M.R.#: [id number] Admission: 02/13/19 ������������������ Attend Phys: Abby Murray MD Discharge: 02/16/19 ������������������ Date of : 47 Report #: [id number] PLAN: He is to use [place] Gel intranasally 3 times daily at minimum to try and maintain moisturization. Humidification of his oxygen is also recommended and should be helpful. No evidence of active bleeding at this time or anything that needs to be cauterized. ��������������������������������������������� <ELECTRONICALLY SIGNED> ���������������������������������������� By: Eduard Villa MD ��������������������������������������������� 02/19/19 1321 1036 1145 Eduard Villa MD /lisa
== END 2019-02-16 21:46 | DRG 513 ==
LOC: ER 09:36 → 2N 10:52 → EROBS 10:52 → 2N 11:47
PROVIDERS: Emergency Medicine; ADMIT Internal Medicine
PROC: 0LB70ZZ Excision of Right Hand Tendon, Open Approach (ICD-10-PCS; principal; 2019-02-16)
PROC: 30233N1 Transfusion of Nonautologous Red Blood Cells into Peripheral Vein, Percutaneous Approach (ICD-10-PCS; 2019-02-16)
DX: T87.41 Infection of amputation stump, right upper extremity (principal); I21.9 Acute myocardial infarction, unspecified; G92 Toxic encephalopathy; B19.9 Unspecified viral hepatitis without hepatic coma; J96.11 Chronic respiratory failure with hypoxia; L03.114 Cellulitis of left upper limb; I46.9 Cardiac arrest, cause unspecified; Y83.5 Amputation of limb(s) as the cause of abnormal reaction of the patient, or of later complication, without mention of misadventure at the time of the procedure; M65.9 Synovitis and tenosynovitis, unspecified; I48.0 Paroxysmal atrial fibrillation; J44.9 Chronic obstructive pulmonary disease, unspecified; K21.9 Gastro-esophageal reflux disease without esophagitis; J34.2 Deviated nasal septum; I10 Essential (primary) hypertension; I25.10 Atherosclerotic heart disease of native coronary artery without angina pectoris; D72.829 Elevated white blood cell count, unspecified; Z96.653 Presence of artificial knee joint, bilateral; D64.9 Anemia, unspecified; I73.9 Peripheral vascular disease, unspecified; R04.0 Epistaxis; F01.50 Vascular dementia, unspecified severity, without behavioral disturbance, psychotic disturbance, mood disturbance, and anxiety; Z66 Do not resuscitate; I48.2 Chronic atrial fibrillation; E78.5 Hyperlipidemia, unspecified; M10.9 Gout, unspecified; Z85.118 Personal history of other malignant neoplasm of bronchus and lung; Z79.01 Long term (current) use of anticoagulants; Z79.1 Long term (current) use of non-steroidal anti-inflammatories (NSAID); Z79.899 Other long term (current) drug therapy
CPT/HCPCS: 10081; 50101; 50386; 56526; 57006; 57091; 57178; 62110; 62850; 70005